=== PATIENT | female | born 1930 | race Caucasian/White ===

== ENCOUNTER 2018-07-04 19:43 | Emergency (ER) | payer OTHER ==
[~2018-07-04] VITALS: Ht 152.4 cm; Wt 70.3 kg
[2018-07-04 19:59] VITALS: BP 177/74
--- NOTE | 2018-07-04 20:02 | NUR ---
PT RETURNED TO LOBBY IN STABLE CONDITION
--- NOTE | 2018-07-04 22:03 | NUR ---
PT AMBULATED TO BED 9
--- NOTE | 2018-07-04 22:03 | NUR ---
PT BROUGHT IN BY GRANDDAUGHTER FOR C/O SEVERE RIGHT LEG PAIN THAT STARTS AT BUTTOCKS AND RADIATES DOWN TO FOOT. PT USES CANE TO AMBULATE AND STATES PAIN OF 10/10 WHEN WALKING. PT STATES PAIN RELIEF OBTAINED WHEN SITTING AND/OR LAYING DOWN. VSS. BED IN LOWEST POSITION. GRANDDAUGHTER AT BEDSIDE.
--- NOTE | 2018-07-04 22:04 | NUR ---
PT AMUBLATED TO ER BED 09
--- NOTE | 2018-07-04 23:07 | NUR ---
Dr. Snowden evaluating patient at bedside.
[2018-07-04] MEDS ORDERED: oxyCODONE/APAP 5/325 MG 1 TAB TAB PO ONE (23:15)
[2018-07-04 23:23] VITALS: BP 158/77
--- NOTE | 2018-07-04 23:23 | NUR ---
PT DISCHARGED AND ASKED TO STAY IN LOBBY FOR 15 TO MONITOR FOR REACTION FROM GIVEN MEDICATION. VSS. PT STATES SHE WILL WAIT.
--- NOTE | 2018-07-04 23:23 | NUR ---
Patient discharged with v/s stable. Written and verbal after care instructions given and explained. Patient alert, oriented and verbalized understanding of instructions. Ambulatory with che assist, assisted by mauro upon leaving ED, normal ambulation for PT. All questions addressed prior to discharge. ID band removed. Patient advised to follow up with PMD. Rx of Percocet given. Patient educated on indication of medication including possible reaction and side effects. Opportunity to ask questions provided and answered.
== END 2018-07-04 23:23 | disposition home or self-care (01) ==
LOC: MED 19:43
DX: M54.31 Sciatica, right side (principal); Z98.890 Other specified postprocedural states
CPT/HCPCS: 99283